=== PATIENT | male | born 1975 | race Two or more races ===

== ENCOUNTER 2021-04-02 21:05 | Emergency (ER) | payer OTHER ==
[~2021-04-02] VITALS: Ht 167.6 cm; Wt 85.7 kg
[~2021-04-02 21:05] MED LIST: ABILIFY2 MG PO; AMBIEN10 MG; AVELOX ABC PAC400 MG PO; CLONAZEPAM0.5 MG PO; NASACORT AQ16.5 GM NS; PROZAC20 MG; SYMBICORT 80/10.2 GM IH; ZYRTEC5 MG PO
[2021-04-03] MEDS ORDERED: SYMBICORT 16010.2 GM IH (03:37)
[2021-04-03] MEDS ORDERED: ZYNCOF 20-400120 ML PO (03:37)
== END 2021-04-03 04:51 ==
LOC: ER 21:05
DX: U07.1 COVID-19 (principal); J12.82 Pneumonia due to coronavirus disease 2019